=== PATIENT | female | born 1985 | race Caucasian/White ===

== ENCOUNTER 2019-04-10 17:46 | Emergency (ER) | payer OTHER ==
[2019-04-10 17:58] VITALS: BP 129/94
[2019-04-10] MEDS ORDERED: PROPARACAINE 0.5% OPHTH DROPS 15 ML EACHEYE STA (17:59)
--- NOTE | 2019-04-10 18:00 | ED Physician Documentation ---
History of Present Illness - Stated complaint Stated Complaint: RT EYE PX/INJ - Chief complaint Chief Complaint: Heent - History obtained from History obtained from: Patient - History of Present Illness Timing: Prior to arrival - Additonal information Additional information: Patient is a previously healthy 34-year-old female presenting with right eye pain after accidentally scratching it on a cardboard box. Patient denies vision loss, purulent drainage, redness, or eyelid complaints. Patient reports foreign body sensation. Patient denies left eye concerns or other issues leading up to this incident. No other improving or worsening factors noted. Review of Systems Eyes: reports: Discharge, Irritation. denies: Loss of vision PD PAST MEDICAL HISTORY - Past Medical History Past Medical History: No - Past Surgical History Past Surgical History: No - Present Medications Home Medications: Ambulatory Orders Medication Instructions Recorded Confirmed Erythromycin Base [Erythromycin 1 gm OP QID 5 Days oint...g. 04/10/19 Ophthalmic Ointment] - Allergies Allergies/Adverse Reactions: Allergies Allergy/AdvReac Type Severity Reaction Status Date / Time No Known Drug Allergies Allergy Verified 04/10/19 17:58 PD ED PE NORMAL - Vitals Vital signs reviewed: Yes - General General: Alert and oriented X 3, No acute distress, Well developed/nourished - HEENT HEENT: Atraumatic, PERRL (Gross visual acuity intact. Please refer to nursing notes for eye acuity.), Moist mucous membranes, Other (Mild periorbital swelling with no erythema or ecchymosis. No evidence of retained foreign body upon eyelid eversion to right eye. However, fluorescein exam of right eye positive for uptake in the right upper quadrant.) - Respiratory Respiratory: No respiratory distress - Derm Derm: Normal color, Warm and dry, No rash - Extremities Extremities: No deformity, No tenderness to palpate - Neuro Neuro: Alert and oriented X 3, No motor deficit, No sensory deficit - Psych Psych: Normal mood, Normal affect Results - Vitals Vitals: Vital Signs - 24 hr 04/10/19 17:55 Temperature 36.1 C L Heart Rate 100 Respiratory 18 Rate Blood Pressure 129/94 H O2 Saturation 100 Oxygen O2 Source Room air PD MEDICAL DECISION MAKING - ED course Complexity details: considered differential, d/w patient, d/w family ED course: Most concerning for corneal abrasion and upon evaluation do not find evidence of retained foreign body, but significant uptake of fluorescein. No other globe injury noted. No other signs of infection such as conjunctivitis found. No other trauma such as hyphema or subconjunctival hemorrhage noted. Do not have concerns for glaucoma, uveitis, iritis, or other emergency at this time. Discussed use of antibiotic ointment, supportive cares, return precautions, and appropriate follow-up. Patient voiced understanding and is comfortable with discharge plan. Departure - Departure Disposition: 01 Home, Self Care Clinical Impression: Corneal abrasion Qualifiers: Encounter type: initial encounter Laterality: right Qualified Code(s): S05.01XA - Injury of conjunctiva and corneal abrasion without foreign body, right eye, initial encounter Condition: Good Instructions: ED Eye Injury Corneal Abrasion Follow-Up: your,doctor [Other] - Within 3 Days Prescriptions: Erythromycin Base [Erythromycin Ophthalmic Ointment] 1 gm OP QID 5 Days oint...g. Comments: Please use antibiotic ointment to the right eye 4 times daily as instructed. Please only use glasses. May use ibuprofen/Tylenol as needed for pain relief. Return to ED sooner if expands worsening symptoms and otherwise may follow-up with primary care physician next 2 to 3 days. Discharge Date/Time: 04/10/19 18:32
== END 2019-04-10 18:32 | disposition home or self-care (01) ==
LOC: ED 17:46
DX: S05.01XA Injury of conjunctiva and corneal abrasion without foreign body, right eye, initial encounter (principal); W26.8XXA Contact with other sharp object(s), not elsewhere classified, initial encounter
CPT/HCPCS: 99283; J3490